=== PATIENT | female | born 1945 | race Caucasian/White ===

== ENCOUNTER 2019-05-18 16:40 | Inpatient (IN) | payer MEDICARE, BC ==
[~2019-05-18] VITALS: Ht 167.6 cm; Wt 68.5 kg
--- NOTE | 2019-05-18 17:00 | NUR ---
Direct admit from Dr. Huynh. Pt ambulated to room and bed. Per pt she had an appt yesterday and today Dr. Huynh called and told her to come to the hospital for high blood sugar. Pt is A&O X 4, denies pain, VSS, blood sugar 351. Orders received from Dr. Huynh. Completed admission assessment. IV inserted. Insulin drip initiated. Oriented to room and routines. Family at bedside. Call light within reach. Will continue to monitor.
[2019-05-18] MEDS ORDERED: INSULIN REGULAR VIAL 150 UNIT in 0.9 % SODIUM CHLORIDE 150ML 150 ML IV PRN (17:15)
[2019-05-18] MEDS ORDERED: DEXTROSE 50% 25 GM / 50ML DISP.SYRIN. IV PRN (17:15)
[2019-05-18] MEDS ORDERED: INSULIN REGULAR 100 UNIT/ML 3ML VIAL. IV ONE (17:15)
[2019-05-18 17:19] VITALS: BP 186/90
[2019-05-18] MEDS: metFORMIN 500 MG TABLET PO SCH (18:07)
[2019-05-18 18:25] LABS: CALCIUM 10.7 mg/dL (8.5-10.1); CREATININE 0.9 mg/dL (0.6-1.0); GFR 61.4; POTASSIUM 3.8 mmol/L (3.5-5.1)
[2019-05-18] MEDS ORDERED: MULT-317 PO (18:52)
[2019-05-18] MEDS ORDERED: ASPI81TA50 PO (18:52)
[2019-05-18 19:00] VITALS: BP 167/80
[2019-05-18 23:00] VITALS: BP_SYST 139; BP_SYST 164; BP_DIAS 77; BP_DIAS 95
[2019-05-18] MEDS ORDERED: INSULIN GLARGINE SYRINGE. SQ ONE (23:00)
[2019-05-19 03:00] VITALS: BP 172/81
[2019-05-19 07:00] VITALS: BP 176/87
[2019-05-19] MEDS ORDERED: ASPIRIN CHEWABLE 81 MG TABLET. PO SCH (08:00)
[2019-05-19] MEDS ORDERED: ASA/APAP/CAFFEINE 250/250/65MG TABLET. PO PRN (08:30)
[2019-05-19] MEDS ORDERED: MULTIVITAMIN with MINERAL TABLET. PO SCH (09:00)
[2019-05-19] MEDS: metFORMIN 500 MG TABLET PO SCH (09:04)
[2019-05-19] MEDS ORDERED: INSULIN GLARGINE SYRINGE. SQ ONE ×3 (09:30→12:30)
[2019-05-19 11:00] VITALS: BP 161/89
--- NOTE | 2019-05-19 11:04 | PDOC ---
Provider Note Provider Note dictated NOLBERTO ÁLVAREZ MD May 19, 2019 11:03
--- NOTE | 2019-05-19 11:34 | SSS ---
ADMIT DATE: 05/19/2019 23-HOUR SUMMARY HOSPITAL SUMMARY: A 74-year-old white female seen in the office 2 days prior to admission for weight loss, multiple questions. Laboratory study showed blood sugar 659 and she was admitted for IV insulin and initial diabetic administration. Rest of her labs were all normal with creatinine of 1.0 and the hemoglobin A1c is pending at this time. She received 40 units of Lantus prior to dismissal and even though her sugars were still in the 300 range, she is comfortable to be followed as an outpatient. Metformin was begun prior to dismissal as well. FINAL DIAGNOSIS: Severe hyperglycemia secondary to a new diagnosis of type 2 diabetes mellitus. OPERATIONS, PROCEDURES, COMPLICATIONS, AND CONSULTATIONS: None. DISPOSITION: Metformin 500 mg twice a day with food and titrate up as tolerated. Lantus 40 units at bedtime and increase by 10 units daily until her blood sugars are below 200, then slower after that. She is advised we do not know the actual ultimate doses that she will need. At a later time, she will be able to transition to other oral medications. She is given a prescription for a blood glucose monitor with insurance preference as well. See Dr. Cespedes in 2-3 days for outpatient management. Dietary instructions were given regarding sugar content and vigorous hydration to prevent dehydration from hyperglycemia. NOLBERTO ÁLVAREZ MD DR: BERTRAND/love JOB#: [id number] / [id number]
[2019-05-19 12:13] VITALS: BP 161/89
[2019-05-19] MEDS ORDERED: INSULIN GLARGINE SYRINGE. SQ SCH ×2 (21:00)
[2019-05-20 03:07] LABS: HEMOGLOBIN A1C 13.1 % (4.8-5.6)
== END 2019-05-19 14:05 | disposition home or self-care (01) | DRG 639 ==
LOC: 2 SOUTH 16:40
PROVIDERS: ADMIT Family Medicine; ATTEND Family Medicine
DX: E11.65 Type 2 diabetes mellitus with hyperglycemia (principal)
CPT/HCPCS: 36415; 80048; 82962; 83036; J1815; G0378